=== PATIENT | female | born 1965 | race Caucasian/White ===

== ENCOUNTER 2016-09-10 21:52 | Observation (INO) | payer OTHER, MEDICARE ==
--- NOTE | ~2016-09-10 | HP ---
History And Physical [place] [address] [place] [place]. [address] NAME: ISAEL HERNANDEZ : 63 STATUS : ADM David PAT#: [id number] AGE: 51 ADM/REG DATE : 09/10/16 MR#: [id number] REPORT SERV DATE: 09/11/16 DICTATED BY: JUNITO CARRILLO DATE: 09/11/16 REPORT STATUS : Draft TRANSCRIBED BY: MODL DATE: 09/11/16 DATE OF ADMISSION: 09/10/2016 REASON FOR ADMISSION: Angina. HISTORY OF PRESENT ILLNESS: Ms Hernandez is a very pleasant 51-year-old female with a history of diabetes on oral medications, hypertension, and a family history of heart disease, who presents to [facility] from [facility] where she presented yesterday with complaints of left-sided chest pains. She states that about a week ago, she was in her usual state of health, at which point in time, she developed nausea. She did not think much of this; however, persisted for four days, and just about three days ago, it became associated with left-sided chest pains. The pains radiated around her left lateral chest as well as into her left jaw. They are not persistent, but instead on and off over the past three to four days. She has had associated symptoms of shortness of breath, in particular with activities over the past few days. She otherwise has had symptoms of significant sweats when her chest pain episodes come on. She denies having any other symptoms, including passing out or near syncope. She is taking all of her diabetic medications without any trouble. She was initially seen at [facility], where she had cardiac enzymes that were negative. She was transferred to [facility] for further evaluation and care, given ongoing pains. ALLERGIES: NO KNOWN DRUG ALLERGIES. PAST MEDICAL HISTORY: As above. FAMILY HISTORY: Significant for [place] in multiple family members (maternal grandfather, and a cousin). SOCIAL HISTORY: The patient lives at home with her . She is adopted, and does not have her paternal family history. She otherwise denies drinking alcohol, smoking, or doing drugs. REVIEW OF SYSTEMS: As above, all other systems otherwise negative. PHYSICAL EXAMINATION: VITAL SIGNS: BP: 144/65, pulse 75, and temperature 97.9. GENERAL: Well-developed, well-nourished, no acute distress. NEURO: Awake, alert and oriented x3; no focal deficits, appropriate mood. HEENT: Moist mucous membranes, anicteric sclerae, no nasal discharge. NECK: No JVD, no carotid bruit. LUNGS: Clear to auscultation bilaterally, no wheezes, rales or rhonchi. CV: Regular rhythm, normal S1/S2, no murmurs, rubs or gallops. ABD: Soft, non-tender, non-distended, no rebound or guarding. EXT: No pitting edema, normal distal pulses. SKIN: Warm, dry and intact; no rash. History And Physical [address] [address] NAME: ISAEL HERNANDEZ : 63 STATUS : ADM David PAT#: [id number] AGE: 51 ADM/REG DATE : 09/10/16 MR#: [id number] REPORT SERV DATE: 09/11/16 DICTATED BY: JUNITO CARRILLO DATE: 09/11/16 REPORT STATUS : Draft TRANSCRIBED BY: BRANT DATE: 09/11/16 PERTINENT TEST FINDINGS: Troponin less than 0.02 x2 (including the one from [facility]). EKG with normal sinus rhythm. Normal mean QRS axis. No pathologic Q- waves, and no ischemic ST-T changes. IMPRESSION AND PLAN: Ms Hernandez is a very pleasant 51-year-old female with a history of diabetes, hypertension, and family history of ischemic heart disease, who presents with left sided anginal pains associated with dyspnea as well as nausea. Accordingly, I recommend proceeding with a stress MPI today, given that she has ruled out for myocardial infarction. She is at intermediate risk - given her risk factors with regard to her pretest probability. Otherwise I recommend continuation of her diabetic medications, as well as initiation of antihypertensive should she remain hypertensive despite resolution of her chest pains either following the stress test or on an outpatient basis. If her stress test is negative, it will be fine for to be discharged today with followup to see her primary care physician. CRUZITO/BRANT Junito Carrillo MD / [id number] CC: Ede Cisneros M.D., Ph.D, F.A.C.C. Johnny Marie MD
[~2016-09-10 21:52] MED LIST: AMARYL2 PO; AMB10 PO; BUSPAR10 PO; CYMBALTA60 PO; FISH-EPA1000 MG PO; GLUCPH PO; INVOKANA100 MG PO; JANUVIA50 PO; LYRICA150 MG PO; NORCO1 TA1 PO; PCET PO; ULTRAM50 PO; V5 PO; VICTOZA18 MG/3 ML SC; WELLSR150 PO
[2016-09-11] MEDS ORDERED: NORCO1 TAB PO (04:09)
[2016-09-11 07:09] LABS: BASOPHILS 0.3 %; BASOPHILS ABSOLUTE 0.03 10/3/uL (0.0-0.16); EOSINOPHILS 1.9 %; EOSINOPHILS ABSOLUTE 0.18 10/3/uL (0.0-0.53); HEMOGLOBIN 13.6 g/dL (12.0-16.0); IMMATURE GRANULOCYTES 0.3 %; IMMATURE GRANULOCYTES ABSOLUTE 0.03 10/3/uL (0.0-0.11); LYMPHOCYTES 45.8 %; LYMPHOCYTES ABSOLUTE 4.38 10/3/uL (0.67-4.30); MEAN CORPUSCULAR HEMOGLOB 33.1 pg (26.0-34.0); MEAN CORPUSCULAR VOLUME 97.3 fL (80-100); MEAN PLATELET VOLUME 11.5 fL (9.2-13.0); MONOCYTES 8.7 %; MONOCYTES ABSOLUTE 0.83 10/3/uL (0.21-1.20); NEUTROPHILS ABSOLUTE 4.12 10/3/uL (2.02-8.40); PLATELET COUNT 216 10/3/uL (150-400); RED CELL COUNT 4.11 10/6/uL (4.0-5.6); WHITE BLOOD CELLS 9.6 10/3/uL (4.5-10.5)
[2016-09-11 07:18] LABS: MANUAL DIFF NO %
[2016-09-11 07:20] LABS: BUN (BLOOD UREA NITROGEN) 11 MG/DL (6-23); CALCIUM, SERUM 9.1 MG/DL (8.5-10.4); CHLORIDE, SERUM 108 MMOL/L (96-112); CO2 (CARBON DIOXIDE) 31 MMOL/L (24-34); CREATININE 1.04 MG/DL (0.55-1.02); GFR AFRICAN AMERICAN 72 ML/MIN (>=60); GFR NON AFRICAN AMERICAN 62 ML/MIN (>=60); GLUCOSE, SERUM 164 MG/DL (60-99); POTASSIUM, SERUM 4.8 MMOL/L (3.5-5.3); SODIUM, SERUM 142 MMOL/L (135-148); TROPONIN I <0.02 NG/ML (<0.05)
== END 2016-09-11 12:32 | disposition home or self-care (01) ==
LOC: CDU1 21:52
PROVIDERS: Internal Medicine Cardiovascular Disease
DX: R07.9 Chest pain, unspecified (principal); I10 Essential (primary) hypertension; E11.9 Type 2 diabetes mellitus without complications
CPT/HCPCS: 78452; 80048; 82962; 84484; 85025; 93005; 93017; 96374; A9270-GY; A9502; G0378